=== PATIENT | female | born 1990 | race Caucasian/White ===

== ENCOUNTER 2018-12-24 08:19 | Day surgery (SDC) | payer OTHER ==
[~2018-12-24] VITALS: Ht 172.7 cm; Wt 108.4 kg
[2018-12-24] VITALS (17 sets, daily range): BP systolic 118–138; BP diastolic 65–77; PULSE 71–82; RESP 16–24; Ht 172.7 cm; Wt 108.4 kg
[~2018-12-24 08:19] MED LIST: CEFAZOLIN 2 GM/50 ML (PMX) 50 ML IVPB ONE; SOD CHLORIDE 0.9% 1,000 ML IV SCH
[2018-12-24] MEDS ORDERED: CEPH-443 PO (09:33)
[2018-12-24] MEDS ORDERED: GLYCOPYRROLATE 0.4 MG INJ ONE (11:53)
[2018-12-24] MEDS ORDERED: PROPOFOL 20 ML ONE (11:53)
[2018-12-24] MEDS ORDERED: FENTAnyl 50 MCG/ML VIAL ONE (11:53)
[2018-12-24] MEDS ORDERED: NEOSTIGMINE 3 MG/3 ML SYRINGE ONE (11:53)
[2018-12-24] MEDS ORDERED: MIDAZOLAM 1 MG/ML 2 ML INJ ONE (11:53)
[2018-12-24] MEDS ORDERED: CEFAZOLIN 1 GM INJ ONE (11:53)
[2018-12-24] MEDS ORDERED: ONDANSETRON 4 MG INJ ONE (11:53)
[2018-12-24] MEDS ORDERED: DEXAMETHASONE 4 MG/ML 5 ML INJ ONE (11:53)
[2018-12-24] MEDS ORDERED: ROCURONIUM 50 MG INJ ONE (11:53)
--- NOTE | 2018-12-24 12:07 | OPR ---
Date/Time of Note Date/Time of Note DATE: 12/24/18 TIME: 12:05 Operative Report Procedure Date: Dec 24, 2018 Preoperative Diagnosis symptomatic gallstones Postoperative Diagnosis same Operation/Procedure Performed laparoscopic cholecystectomy Surgeon see signature line Maintenance Technician 2Nd Shift none Anesthesia Type: general Estimated Blood Loss: 0 - 10 ml's Transfusion none Specimen gallbladder Grafts/Implants none Complications none Pt Condition Post Procedure: stable Indications This is a 28-year-old female with some tender gallstones. She required surgical excision of her gallbladder. Risks alternatives benefits and personal were discussed the patient. Patient expressed understanding and consents to the operation. Procedure Description Patient is taken to the OR and prepped and draped in usual sterile fashion. Surgical timeout is performed. IV antibiotics were given. Infraumbilical transverse incision was made with a 15 blade. Dissection with cautery skin onto the fascia. The fascia was grasped with Romero's and divided with curved masses. 0 Vicryl use this was placed into the fascia. Morales trocar was introduced. Pneumoperitoneum is established. Midepigastric 12 mm optical trochars placed under direct visualization. Right upper quadrant upper flank 5 mm optical trochars were placed under direct visualization. Upon initial inspection there is some adhesions to the gallbladder. These were taken down bluntly. The gallbladder is grasped and retracted in a cephalad and lateral direction. [place] graspers were used to dissect out the cystic duct and cystic artery. The critical view was established. The cystic duct is divided with 3 clips proximal to distal and the division is performed laparoscopic scissors. Cystic artery was divided with 3 clips proximally one clip distal and the divisions performed laparoscopic scissors. The gallbladder was taken off the gallbladder bed. Good hemostasis status. The gallbladder is retrieved Endo Catch bag. All ports were removed under direct visualization. 0 Vicryl use this was tied down. Skin is closed and skin jhonny. A tap block was provided by the anesthesiologist at the beginning of the case. Dry dressings were applied. Avelina BARRERA Dec 24, 2018 12:07
[2018-12-24] MEDS ORDERED: HYDROCODONE/APAP (5/325) TAB PO ONE (12:30)
--- NOTE | 2018-12-24 12:42 | PREAC ---
Date/Time of Note Date/Time of Note DATE: 12/24/18 TIME: 12:40 Anesthesia Eval and Record Evaluation Time Pre-Procedure Interview DATE: 12/24/18 TIME: 12:40 Age 28 Sex female NPO: 8 hrs Preoperative diagnosis SYMPTOMATIC CHOLELITHIASIS Planned procedure LAP LUKE Past Medical History Past Medical History: Includes GI: Obesity Surgery & Anesthesia Issues No known issue Meds Anticoagulation: No Beta Pedro within 24 hr: No Reason Beta Pedro not given: Pt. not on B-Pedro Reported Medications Cephalexin* (Keflex*) 500 Mg Capsule, 500 MG PO BID, #28 CAP STARTED 12-15-18 FOR 10 DAYS 12/24/18 Current Medications Sodium Chloride 1,000 ml @ 75 mls/hr [id number] IV Last administered on 12/24/18at 10:16; Admin Dose 75 MLS/HR; Start 12/24/18 at 06:00; Stop 12/24/18 at 18:00 Meds reviewed: Yes Allergies Coded Allergies: No Known Allergy (Unverified , 12/24/18) Allergies Reviewed: Yes Labs/Studies Labs Reviewed: Reviewed by anesthesiologist test: Negative Pre-procedure Exam Last vitals Vital Signs Date Temp Pulse Resp B/P (MAP) Pulse Ox O2 O2 Flow FiO2 Time Delivery Rate 12/24/18 98.0 71 16 125/76 98 Room Air 10:34 (92) Airway: Adequate mouth opening, Adequate thyromental dist Mallampati: Mallampati II Teeth: Normal Lung: Normal Heart: Normal ASA Physical Status ASA physical status: 2 Emergency: None Planned Anesthetic General/MAC: ETT Planned Pain Management Parenteral pain med Pre-operative Attestations Prior to commencing anesthesia and surgery, the patient was re-evaluated, there was verification of: *The patient's identity *The results of appropriate recent lab work and preoperative vital signs *The above evaluation not changing prior to induction *Anesthetic plan, risk benefits, alternative and complications discussed with patient/family; questions answered; patient/family understands, accepts and wishes to proceed. Terry Randolph M.D. Dec 24, 2018 12:41
[2018-12-24] MEDS ORDERED: SUGAMMADEX SODIUM 200 MG/2 ML VIAL IV ONE (13:24)
[2018-12-24] MEDS ORDERED: OXYCODONE/ACETAMINOPHEN (5/325) TAB PO PRN ×2 (14:00)
[2018-12-24] MEDS ORDERED: FENTAnyl 50 MCG/ML VIAL IV PRN ×2 (14:00)
[2018-12-24] MEDS ORDERED: LABETALOL HCL 20MG INJ IV PRN (14:00)
[2018-12-24] MEDS ORDERED: HYDROmorphONE 1 MG/5 ML IV SYRINGE IV PRN ×3 (14:00)
[2018-12-24] MEDS ORDERED: ALBUTEROL 0.083% (NEB) 2.5 MG/3 ML AMP HHN PRN (14:00)
[2018-12-24] MEDS ORDERED: MEPERIDINE 25 MG INJ IV PRN (14:00)
[2018-12-24] MEDS ORDERED: morphine 2 MG INJ IV PRN ×2 (14:00)
[2018-12-24] MEDS ORDERED: DIPHENHYDRAMINE 50 MG INJ IV PRN (14:00)
[2018-12-24] MEDS ORDERED: ONDANSETRON 4 MG INJ IV PRN (14:00)
--- NOTE | 2018-12-24 14:00 | PAC ---
Date/Time of Note Date/Time of Note DATE: 12/24/18 TIME: 13:59 Post-Anesthesia Notes Post-Anesthesia Note Last documented vital signs Vital Signs Date Temp Pulse Resp B/P Pulse Ox O2 O2 Flow FiO2 Time (MAP) Delivery Rate 12/24/18 98.0 99.7 71 72 16 18 125/76 98 98 Room 10:34 135 (92) 121 Air face mask 6L Activity: WNL Respiratory function: WNL Cardiovascular function: WNL Mental status: Baseline Pain reasonably controlled: Yes Hydration appropriate: Yes Nausea/Vomiting absent: Yes LOU TENA Dec 24, 2018 14:00
== END 2018-12-24 17:15 | disposition home or self-care (01) ==
LOC: SDS 08:19
PROVIDERS: ATTEND Surgery
DX: K80.10 Calculus of gallbladder with chronic cholecystitis without obstruction (principal); E66.9 Obesity, unspecified
CPT/HCPCS: 47562; 84703; 88304; J0690; J1100; J1170; J2175; J2250; J2405; J2710; J3010; Z7512; Z7610

== ENCOUNTER 2018-12-27 23:13 | Emergency (ER) | payer OTHER ==
[~2018-12-27] VITALS: Ht 172.7 cm; Wt 108.0 kg
[~2018-12-27 23:13] MED LIST changes: -CEFAZOLIN 2 GM/50 ML (PMX) 50 ML IVPB ONE; +CEPH-443 PO; -SOD CHLORIDE 0.9% 1,000 ML IV SCH
[2018-12-27 23:17] VITALS: Ht 172.7 cm; Wt 108.0 kg
[2018-12-27] MEDS ORDERED: SOD CHLORIDE 0.9% 1,000 ML IV STA (23:34)
[2018-12-27] MEDS ORDERED: ONDANSETRON 4 MG INJ IV STA (23:34)
[2018-12-27] MEDS ORDERED: morphine 4 MG/ML VIAL IV STA (23:34)
[2018-12-28] MEDS ORDERED: SOD CHLORIDE 0.9% 100 ML ONE (00:44)
[2018-12-28] MEDS ORDERED: IOHEXOL 300MG/ML 150 ML BTL ONE (00:44)
--- NOTE | 2018-12-28 02:34 | ERD ---
ER Documentation Chief Complaint Chief Complaint R SIDE ABD PAIN. PT IS 4 DAYS S/P LAP LUKE HPI 28-year-old female with right-sided abdominal pain. Patient is 4 days status post laparoscopic cholecystectomy. She says she has had pain in the right upper quadrant since then. She said the pain meds at home are not helping. Denies any fevers or chills. Denies any other current complaints. ROS All systems reviewed and are negative except as per history of present illness. Medications Home Meds Reported Medications Cephalexin* (Keflex*) 500 Mg Capsule, 500 MG PO BID, #28 CAP STARTED 12-15-18 FOR 10 DAYS 12/24/18 Allergies Allergies: Coded Allergies: No Known Allergy (Unverified , 12/24/18) PMhx/Soc History of Surgery: Yes (GALLBLADDER 2019) Anesthesia Reaction: No Hx Neurological Disorder: No Hx Respiratory Disorders: No Hx Cardiac Disorders: No Hx Psychiatric Problems: No Hx Miscellaneous Medical Probl: No Hx Alcohol Use: No Hx Substance Use: No Hx Tobacco Use: No Smoking Status: Never smoker Physical Exam Vitals Vital Signs Date Temp Pulse Resp B/P (MAP) Pulse Ox O2 O2 Flow FiO2 Time Delivery Rate 12/27/18 97.6 85 18 156/70 96 23:17 (98) Physical Exam Const: No acute distress Head: Atraumatic Eyes: Normal Conjunctiva ENT: Normal External Ears, Nose and Mouth. Neck: Full range of motion. No meningismus. Resp: Clear to auscultation bilaterally Cardio: Regular rate and rhythm, no murmurs Abd: Soft, non tender, non distended. Normal bowel sounds Skin: No petechiae or rashes Back: No midline or flank tenderness Ext: No cyanosis, or edema Neur: Awake and alert Psych: Normal Mood and Affect Result Diagram: 12/27/18 2339 12/27/18 2339 Results 24 hrs Laboratory Tests Test 12/27/18 23:28 12/27/18 23:39 12/27/18 23:45 Urine Color YELLOW Urine Clarity CLEAR Urine pH 6.0 Urine Specific [place] 1.017 Urine Ketones TRACE mg/dL Urine Nitrite NEGATIVE mg/dL Urine Bilirubin NEGATIVE mg/dL Urine Urobilinogen 2+ mg/dL Urine Leukocyte Esterase 2+ Kenneth/ul Urine Microscopic RBC 2 /HPF Urine Microscopic WBC 18 /HPF Urine Squamous Epithelial Cells FEW /HPF Urine Hemoglobin 1+ mg/dL Urine Glucose NEGATIVE mg/dL Urine Total Protein NEGATIVE mg/dl White Blood Count 11.0 10^3/ul Red Blood Count 4.21 10^6/ul Hemoglobin 12.7 g/dl Hematocrit 39.0 % Mean Corpuscular Volume 92.6 fl Mean Corpuscular Hemoglobin 30.2 pg Mean Corpuscular 32.6 g/dl Hemoglobin Concent Red Cell Distribution Width 12.9 % Platelet Count 353 10^3/UL Mean Platelet Volume 10.6 fl Immature Granulocytes % 0.400 % Neutrophils % 74.5 % Lymphocytes % 16.4 % Monocytes % 6.3 % Eosinophils % 1.7 % Basophils % 0.7 % Nucleated Red Blood Cells % 0.0 /100WBC Immature Granulocytes # 0.040 10^3/ul Neutrophils # 8.2 10^3/ul Lymphocytes # 1.8 10^3/ul Monocytes # 0.7 10^3/ul Eosinophils # 0.2 10^3/ul Basophils # 0.1 10^3/ul Nucleated Red Blood Cells # 0.0 10^3/ul Sodium Level 140 mmol/L Potassium Level 3.7 mmol/L Chloride Level 102 mmol/L Carbon Dioxide Level 29 mmol/L Anion Gap 9 Blood Urea Nitrogen 11 mg/dl Creatinine 0.61 mg/dl Est Glomerular Filtrat > 60 mL/min Rate mL/min Glucose Level 98 mg/dl Calcium Level 9.4 mg/dl Total Bilirubin 0.8 mg/dl Direct Bilirubin 0.00 mg/dl Indirect Bilirubin 0.8 mg/dl Aspartate Amino 47 IU/L Transf (AST/SGOT) Alanine 78 IU/L Aminotransferase (ALT/SGPT) Alkaline Phosphatase 121 IU/L Total Protein 7.7 g/dl Albumin 4.1 g/dl Globulin 3.60 g/dl Albumin/Globulin Ratio 1.13 Lipase 58 U/L POC Beta HCG, Qualitative NEGATIVE Current Medications Medications Dose Sig/Renato Start Time Status Last (Trade) Ordered Route PRN Stop Time Admin Dose Reason Admin Sodium 1,000 ml @ Q1H STAT 12/27/18 DC 12/27/18 Chloride 1,000 mls/hr IV 23:34 23:53 12/28/18 00:33 Morphine 4 mg ONCE STAT 12/27/18 DC 12/27/18 Sulfate IV 23:34 23:53 (morphine) 12/27/18 23:35 Ondansetron 4 mg ONCE STAT 12/27/18 DC 12/27/18 HCl (Zofran IV 23:34 23:54 Inj) 12/27/18 23:35 IV Flush 10 ml STK-MED 12/28/18 DC (NS 10 ml) ONCE .ROUTE 00:44 12/28/18 00:45 Sodium 100 ml @ ud STK-MED 12/28/18 DC Chloride ONCE .ROUTE 00:44 12/28/18 00:45 Iohexol 150 ml STK-MED 12/28/18 DC (Omnipaque ONCE .ROUTE 00:44 300mg/ ml) 12/28/18 00:45 Procedures/MDM Medical decision making: Patient's gastrointestinal symptoms have stabilized while in the department. No evidence of severe dehydration, sepsis, or surgical abdomen. Extensive discussion with family and patient that occult disease cannot be ruled out. 8 hour recheck for repeat abdominal exam is planned. Patient does not seem to have evidence of postop infection. At this point I feel she is stable for trial of outpatient management and can follow-up with Dr. Lopez as an outpatie nt. Departure Diagnosis: Primary Impression: Postoperative pain Condition: Stable PRATIK SMITH Dec 28, 2018 02:34
[2018-12-28] MEDS ORDERED: ONDA4TAB14 PO (02:35)
[2018-12-28] MEDS ORDERED: TRAM50TA2 PO (02:35)
[2018-12-28 02:40] VITALS: BP 141/72; PULSE 71; RESP 18
== END 2018-12-28 02:40 | disposition home or self-care (01) ==
LOC: E/R 23:13
DX: G89.18 Other acute postprocedural pain (principal)
CPT/HCPCS: 36415; 74177; 80053; 81001; 81025; 83690; 85025; 96374; 96375; J2270; J2405; J7030; Q9967; Z7502; Z7610